=== PATIENT | male | born 1970 | race Caucasian/White ===

== ENCOUNTER 2016-05-11 04:21 | Emergency (ER) | payer BC ==
[2016-05-11] MEDS ORDERED: ONDANSETRON 4 MG VIAL ONE ×2 (05:11→10:22)
[2016-05-11] MEDS ORDERED: KETOROLAC 30 MG/ML VIAL ONE (05:12)
[2016-05-11] MEDS ORDERED: SODIUM CHLORIDE 0.9% 1,000 ML ONE (05:12)
[2016-05-11] MEDS ORDERED: MORPHINE 4 MG/ML SYR ONE (05:12)
== END 2016-05-11 07:08 | disposition home or self-care (01) ==
LOC: ER 04:21
DX: N20.0 Calculus of kidney (principal); R31.29 Other microscopic hematuria; K21.9 Gastro-esophageal reflux disease without esophagitis; Z79.899 Other long term (current) drug therapy
CPT/HCPCS: 74176; 80053; 81001; 83690; 85025; 96361; 96374; 96375